=== PATIENT | female | born 1960 | race Caucasian/White ===

== ENCOUNTER 2023-12-03 07:28 | Outpatient (CLI) | payer BC, SELFPAY ==
[2023-12-03 07:49] VITALS: BMI 38.9
--- NOTE | 2023-12-03 07:49 | NMCV_ITS ---
NM franchesca perf SPECT r/s* [id number] Ana Paez Age: 63 Gender: F : 1960 Exam Date: 12/03/2023 07:49 Ordering Phys: Lucia Rios ASSOCIATE PROFESSOR OF MEDIA ARTS Technologist: ADELIA Kong Exam Location: [facility] Indications: CHEST PAIN STRESS TEST Please see separate stress test report in [facility] for full findings IMAGE PROTOCOL Rest/Stress 1 Exercise Day Radiopharmaceutical Dose (mCi) Administration Site Administered by Rest: Tc-99m 10.9 IV ADELIA Cabrera Sestamibi Stress:Tc-99m 32.8 IV ADELIA Cabrera Sestamibi Rest: 03-Dec-2023 60 Discovery 630 Stress: 03-Dec-2023 15 Discovery 630 Radiopharmaceutical was injected at 89 % maximum heart rate. Images obtained in supine and prone position. SPECT RESULTS Technical Quality: Excellent Raw Data Analysis: Normal Image Corrections: No attenuation or motion correction applied Summed Stress Score: 0 Summed Rest Score: 5 Summed Difference Score: 0 PERFUSION FINDINGS Patchy areas of slightly decreased tracer uptake were noted in the anteroseptal and inferolateral regions. No significant reversibility was noted FUNCTIONAL RESULTS (calculated via Gated SPECT) Stress Image LV EF (%): 80 Stress EDV (mL):82 TID: 1.09 Stress ESV (mL):16 FUNCTIONAL FINDINGS: Segmental wall motion analysis revealing no gross wall motion abnormalities IMPRESSIONS 1. Myocardial perfusion imaging revealing patchy areas of slightly decreased persistent decreased tracer uptake in the anteroseptal and inferolateral regions, most likely represent attrition artifacts 2. Normal LV ejection fraction of 80% 3. LV wall motion analysis revealing no gross wall motion abnormalities. 4. Normal LV volume Low probability for coronary ischemia, based on the above findings No similar previous studies are available for comparison Dr Abraahm Syed MD [facility] (Electronically Signed) Final Date: 03 December 2023 22:47 S
--- NOTE | 2023-12-03 07:49 | ECG_ITS ---
[facility] Test Date: 2023-12-03 Pat Name: Ana Paez Department: Room: Gender: Female Rn Diabetes Educator: Maryansena SoniNia : 1960 Requested By: Lucia Rios Order Number: [id number] Dante MD: Abraham Syed M.D. Interpretive Statements NAME OF STUDY: EXERCISE SESTAMIBI STRESS TEST INDICATION: Chest Pain, PROCEDURE: The baseline electrocardiogram showed [normal sinus rhythm with some nonspecific T wave changes in the inferior leads. Poor R wave progression. Possible old septal [place]. At the baseline, the patient's blood pressure was mm Hg with a heart rate of. The patient exercised for 2 minutes and 57 seconds on a standard [employer] protocol. Patient attained a maximum heart rate of 157 beats per minute(96% of the maximum predicted heart rate) with a blood pressure at the peak exercise of 204/113 mm Hg. The EKG at the peak exercise revealed no significant changes. Patient did not have any chest pain . Occasional PVCs were noted on the monitor Sestamibi was injected 1 minute prior to the peak exercise During the recovery phase, there were no new changes. Blood pressure at the end of the recovery phase was 156/94 mm Hg with a heart rate of 77 per minute. CONCLUSION: 1. No significant EKG changes with the treadmill exercise 2. No exercise-induced chest pain or significant cardiac arrhythmia 3. Impaired exercise tolerance, attained a maximum of 4.6 METs 4. Sestamibi/Sestamibi perfusion results pending; see separate report. Electronically Signed On 12-09-2023 19:34:40 CDT by Abraham Syed M.D. [id number]
[2023-12-03 09:21] VITALS: BP 156/95; PULSE 77
== END 2023-12-03 07:29 | disposition home or self-care (01) ==
PROVIDERS: PCP Nurse Practitioner Family; Visit Provider Nurse Practitioner Family
DX: R07.89 Other chest pain (principal)
CPT/HCPCS: 36415; 78452; 93017; A9500